=== PATIENT | female | born 1975 | race Caucasian/White ===

== ENCOUNTER 2016-09-19 19:22 | Emergency (ER) | payer MEDICARE ==
[2016-09-19 20:25] LABS: HEMOGLOBIN 13.1 gm/dl (12.3-15.3); RED BLOOD COUNT 4.25 M/UL (4.00-5.10); WHITE BLOOD COUNT 9.9 K/UL (4.5-11.0)
[2016-09-19 20:45] LABS: BUN/CREATININE RATIO 15 (0-10)
[2017-02-10] MEDS ORDERED: ALDACTONE25 MG PO (05:25)
[2017-02-10] MEDS ORDERED: COREG 3.125M3.125 MG PO (05:25)
[2017-02-10] MEDS ORDERED: BAYER CHEWABLE81 MG PO (05:26)
[2017-02-10] MEDS ORDERED: LASIX80 MG PO (05:26)
== END 2016-09-19 23:30 | disposition home or self-care (01) ==
LOC: ER1 19:22
PROVIDERS: Family Medicine
DX: J20.9 Acute bronchitis, unspecified (principal); E87.6 Hypokalemia; I25.2 Old myocardial infarction; Z86.73 Personal history of transient ischemic attack (TIA), and cerebral infarction without residual deficits; Z85.3 Personal history of malignant neoplasm of breast; Z95.810 Presence of automatic (implantable) cardiac defibrillator; Z87.891 Personal history of nicotine dependence; Z79.82 Long term (current) use of aspirin; Z79.899 Other long term (current) drug therapy
CPT/HCPCS: 36415; 71020; 80053; 81001; 82550; 82553; 83874; 83880; 84484; 85025; 87086; 93005; 94664; 96374; 99284; J2930

== ENCOUNTER 2020-06-26 20:08 | Emergency (ER) | payer OTHER ==
[~2020-06-26 20:08] MED LIST: ALDACTONE25 MG PO; BAYER CHEWABLE81 MG PO; BUMEX 1MG TABLET1 MG PO; COREG 3.125M3.125 MG PO; CYCLOBENZAPRINE10 MG PO; IBUPROFEN600 MG PO; LASIX80 MG PO; PEPCID40 MG PO
[2020-06-27 01:06] LABS: HEMOGLOBIN 13.7 gm/dl (12.3-15.3); RED BLOOD COUNT 4.57 M/UL (4.00-5.10); WHITE BLOOD COUNT 8.3 K/UL (4.5-11.0)
[2020-06-27 01:24] LABS: BUN/CREATININE RATIO 19 (0-10)
== END 2020-06-27 04:38 | disposition short-term general hospital (02) ==
LOC: ER1 20:08
PROVIDERS: Physician Assistant
DX: I77.1 Stricture of artery (principal); Z20.822 Contact with and (suspected) exposure to COVID-19; Z88.8 Allergy status to other drugs, medicaments and biological substances
CPT/HCPCS: 36415; 73610; 75635; 80053; 85025; 85610; 85730; 93925; 96374; 99285; J1644; Q9967; U0002

== ENCOUNTER 2020-07-21 18:51 | Emergency (ER) | payer OTHER ==
[2020-07-21 20:08] LABS: HEMOGLOBIN 12.3 gm/dl (12.3-15.3); RED BLOOD COUNT 4.18 M/UL (4.00-5.10); WHITE BLOOD COUNT 8.4 K/UL (4.5-11.0)
[2020-07-21 20:19] LABS: BUN/CREATININE RATIO 21 (0-10)
== END 2020-07-22 03:22 | disposition short-term general hospital (02) ==
LOC: ER1 18:51
PROVIDERS: Family Medicine
DX: I74.3 Embolism and thrombosis of arteries of the lower extremities (principal); I42.9 Cardiomyopathy, unspecified; I10 Essential (primary) hypertension; Z20.822 Contact with and (suspected) exposure to COVID-19; F41.9 Anxiety disorder, unspecified; Z79.01 Long term (current) use of anticoagulants
CPT/HCPCS: 73630; 75635; 80053; 83605; 85025; 85652; 86140; 99285; J1644; Q9967; U0002

== ENCOUNTER → 2020-10-01 | Outpatient (CLI) | payer OTHER | LOC: MAMO 10:30 | DX: Z12.31 Encounter for screening mammogram for malignant neoplasm of breast (principal) | CPT/HCPCS: 77063; 77067 ==

== ENCOUNTER 2021-06-15 09:18 | Emergency (ER) | payer OTHER | END 2021-06-15 11:48 | disposition home or self-care (01) | LOC: ER1 09:18 | DX: M72.2 Plantar fascial fibromatosis (principal); Z95.0 Presence of cardiac pacemaker; I10 Essential (primary) hypertension; Z86.718 Personal history of other venous thrombosis and embolism | CPT/HCPCS: 73630; 99283 ==

== ENCOUNTER → 2021-09-01 | Outpatient (CLI) | payer MEDICARE ==
[~2021-09-01] MED LIST changes: +ASPIRIN EC81 MG PO; +ATORVASTATIN CA80 MG PO; +ELIQUIS 5 MG TAB5 MG PO; +FERROUS SULFAT325 M2 PO; +FUROSEMIDE40 MG PO; +LEVOFLOXACIN500 MG PO; +LEVOTHYROXINE25 MCG PO; +MIDODRINE HCL5 MG PO; +OLANZAPINE7.5 MG PO; +PROTONIX40 MG PO; +SANTYL OINT 3030 GM TOP; +rocephin
== END ==
LOC: WCC 10:30
DX: S81.801A Unspecified open wound, right lower leg, initial encounter (principal); I96 Gangrene, not elsewhere classified; I87.011 Postthrombotic syndrome with ulcer of right lower extremity; I50.9 Heart failure, unspecified; I82.401 Acute embolism and thrombosis of unspecified deep veins of right lower extremity; I73.9 Peripheral vascular disease, unspecified; R60.0 Localized edema; F99 Mental disorder, not otherwise specified; I82.492 Acute embolism and thrombosis of other specified deep vein of left lower extremity; F09 Unspecified mental disorder due to known physiological condition
CPT/HCPCS: G0463

== ENCOUNTER → 2021-09-09 | Outpatient (CLI) | payer MEDICARE ==
[~2021-09-09] MED LIST changes: +ANTACID200 MG PO; +ELIQUIS5 MG PO
== END | disposition home or self-care (01) ==
LOC: WCC 08:24
DX: S81.801A Unspecified open wound, right lower leg, initial encounter (principal); I87.011 Postthrombotic syndrome with ulcer of right lower extremity; I82.401 Acute embolism and thrombosis of unspecified deep veins of right lower extremity; I73.9 Peripheral vascular disease, unspecified; I82.492 Acute embolism and thrombosis of other specified deep vein of left lower extremity; M79.661 Pain in right lower leg; I50.9 Heart failure, unspecified; R60.0 Localized edema; Z79.01 Long term (current) use of anticoagulants; Z79.899 Other long term (current) drug therapy
CPT/HCPCS: 97597

== ENCOUNTER 2021-09-12 13:01 | Emergency (ER) | payer MEDICARE ==
[~2021-09-12] VITALS: Ht 157.5 cm; Wt 61.2 kg
[~2021-09-12 13:01] MED LIST changes: -ANTACID200 MG PO; -ELIQUIS5 MG PO
[2021-09-12 15:14] LABS: HEMOGLOBIN 14.6 gm/dl (12.3-15.3); RED BLOOD COUNT 5.06 M/UL (4.00-5.10); WHITE BLOOD COUNT 8.2 K/UL (4.5-11.0)
[2021-09-12] MEDS ORDERED: ELIQUIS5 MG PO (16:37)
[2021-09-12] MEDS ORDERED: ANTACID200 MG PO (16:38)
== END 2021-09-13 00:57 | disposition short-term general hospital (02) ==
LOC: ER1 13:01
PROVIDERS: Nurse Practitioner
DX: I25.5 Ischemic cardiomyopathy (principal); I82.4Z3 Acute embolism and thrombosis of unspecified deep veins of distal lower extremity, bilateral; E87.1 Hypo-osmolality and hyponatremia; E87.6 Hypokalemia; Z20.822 Contact with and (suspected) exposure to COVID-19; N39.0 Urinary tract infection, site not specified; R74.01 Elevation of levels of liver transaminase levels; I48.91 Unspecified atrial fibrillation; I50.9 Heart failure, unspecified
CPT/HCPCS: 75635; 80053; 80076; 81001; 82140; 83605; 85025; 85610; 85652; 85730; 86140; 87040; 93925; 93971; 96374; 99285; J0696; J1644; Q9967; U0002